=== PATIENT | male | born 1975 | race Hispanic/Latino ===

== ENCOUNTER 2021-08-13 20:11 | Emergency (ER) | payer SELFPAY ==
[2021-08-13] MEDS ORDERED: NA CHLORIDE 0.9% 1,000 ML ONE (20:49)
--- NOTE | 2021-08-13 20:51 | RAD REPORT ---
EXAM DESCRIPTION: CT - CTHCSPWOC - 08/13/2021 8:41 pm CLINICAL HISTORY: Trauma, head and neck injury. fall and AMS COMPARISON: No comparisons TECHNIQUE: Axial 5 mm thick images of the head were obtained. Axial 2 mm thick images of the cervical spine were obtained with sagittal and coronal reconstruction images generated and reviewed. All CT scans are performed using dose optimization technique as appropriate and may include automated exposure control or mA/KV adjustment according to patient size. FINDINGS: CT HEAD WITHOUT CONTRAST: No acute hemorrhage, hydrocephalus or extra-axial collection is identified.No areas of brain edema or midline shift. The paranasal sinuses and mastoids are clear.The calvarium is intact. CT CERVICAL SPINE WITHOUT CONTRAST: No fracture or subluxation.No prevertebral soft tissues swelling is identified. IMPRESSION: No acute intracranial or cervical spine findings.
[2021-08-13 20:56] LABS: Hematocrit 39.6 % (39.6-49.0); Lymphocytes % 19.8 % (15.3-44.8); MPV 9.7 fL (7.6-11.3); RBC Red Blood Cell Count 4.28 M/uL (4.33-5.43)
[2021-08-13 21:09] LABS: Potassium 3.2 mmol/L (3.5-5.1)
[2021-08-13 21:36] LABS: Platelet Estimate DECR; White Blood Cell Scan OK (OK)
[2021-08-13 21:37] LABS: Blood Morphology Comment NOT SEEN (NOT SEEN)
--- NOTE | 2021-08-13 21:47 | ER ---
Nurse's Notes [facility] Name: Bishop Youngblood Age: 45 yrs Sex: Male : 1975 Arrival Date: 08/13/2021 Time: 20:14 Bed 4 Private MD: Diagnosis: Other slipping, tripping and stumbling without falling, sequela;Slipping, tripping and stumbling without falling, unspecified, sequela Presentation: 08/13 20:17 Chief complaint: EMS states: EMS states pt was on a walking trail when someone called tw5 the police stating the patient fell. Pt denies fall, or LOC, dried blood noted around nose, no active bleeding. Coronavirus screen: Vaccine status: Patient reports being unvaccinated. At this time, the client does not indicate any symptoms associated with coronavirus-19. Ebola Screen: No symptoms or risks identified at this time. Initial Sepsis Screen: Does the patient meet any 2 criteria? No. Patient's initial sepsis screen is negative. Does the patient have a suspected source of infection? No. Patient's initial sepsis screen is negative. Risk Assessment: Do you want to hurt yourself or someone else? Patient reports no desire to harm self or others. Onset of symptoms was August 13, 2021. Activity prior to arrival: Exercising on walking trail. 20:17 Method Of Arrival: EMS: [facility] tw5 20:17 Acuity: CHANI 3 tw5 Triage Assessment: 20:21 General: Appears comfortable, Behavior is calm, cooperative. Pain: Denies pain. EENT: tw5 Nares Dried blood noted. Reports States he was running and nose started bleeding. Denies pain. Neuro: Level of Consciousness is awake, alert, obeys commands, Oriented to person, place, time, situation, Gait is steady, Speech is normal, Denies weakness dizziness. Historical: - Allergies: 20:21 No Known Allergies; tw - Home Meds: 20:21 None [Active]; tw5 - PMHx: 20:21 None; tw - PSHx: 20:21 None; tw - Immunization history:: Client reports having NOT received the Covid vaccine. - Social history:: Smoking status: Patient denies any tobacco usage or history of. Screenin:56 Abuse screen: Denies threats or abuse. Nutritional screening: No deficits noted. vc1 Tuberculosis screening: No symptoms or risk factors identified. Fall Risk None identified. Assessment: 20:30 Neuro: Level of Consciousness is awake, alert, obeys commands, Oriented to person, tw5 place, time, situation, Denies weakness dizziness. 20:30 General: Appears comfortable, Behavior is calm, cooperative. Pain: Denies pain. tw5 20:30 Neuro: Denies Pt denies falling or LOC. EENT: Nares bilaterally Dried blood. Reports tw5 nasal discharge that is bloody States nose started bleeding wile exercising . Denies Falling. Derm: Skin is pink, warm \T\ dry. Vital Signs: 20:17 BP 147 / 90; Pulse 124; Resp 16; Temp 98.4(O); Pulse Ox 99% on R/A; Weight 68.04 kg tw5 (R); Height 5 ft. 5 in. (165.10 cm) (R); Pain 0/10; 22:01 BP 116 / 74; Pulse 94; Resp 15; Pulse Ox 98% on R/A; tw5 23:00 BP 149 / 83; Pulse 95; Resp 20; Pulse Ox 100% on R/A; tw5 20:17 Body Mass Index 24.96 (68.04 kg, 165.10 cm) tw5 ED Course: 20:14 Patient arrived in ED. wm 20:14 Homa Adam is Primary Nurse. tw5 20:19 Homero Tucker MD is Attending Physician. kdr 20:21 Triage completed. tw5 20:21 Arm band placed on Patient placed. tw5 20:21 Patient has correct armband on for positive identification. vc1 20:42 CT Head C Spine In Process Unspecified. EDMS 20:45 Inserted saline lock: 20 gauge in right antecubital area, using aseptic technique. oe Blood collected. 20:45 Basic Metabolic Panel Sent. oe 20:45 CBC with Diff Sent. oe 22:56 No provider procedures requiring assistance completed. IV discontinued, intact, vc1 bleeding controlled, No redness/swelling at site. Pressure dressing applied. Administered Medications: 20:47 Drug: NS 0.9% 1000 ml Route: IV; Rate: 1 bolus; Site: right antecubital; tw5 23:02 Follow up: Response: No adverse reaction; IV Status: Completed infusion; IV Intake: tw5 1000ml 23:00 Drug: Potassium Effervescent Tablet 50 mEq Route: PO; tw5 23:08 Follow up: Response: Medication administered at discharge. tw5 Medication: 22:57 VIS not applicable for this client. vc1 Intake: 23:02 IV: 1000ml; Total: 1000ml. tw5 Outcome: 21:47 Discharge ordered by . kdr 22:56 Discharged to home ambulatory. vc1 22:56 Condition: good 22:56 Discharge instructions given to patient, Instructed on discharge instructions, follow up and referral plans. Demonstrated understanding of instructions, follow-up care. 23:08 Patient left the ED. tw5 Signatures: Dispatcher [employer] EDMS Homero Tucker MD MD kdr Espinosa, Orlando oe Marsh, Wendy wm Wood, Tiffany tw5 Anna Gray RN RN vc1 Corrections: (The following items were deleted from the chart) 23:07 23:03 General: Appears comfortable, Behavior is calm, cooperative, tw5 tw5 23:07 23:03 Pain: Denies pain. tw5 tw5 23:07 23:03 Neuro: Level of Consciousness is awake, alert, obeys commands, Oriented to tw5 person, place, time, situation, tw5
--- NOTE | 2021-08-13 21:47 | EDPHYS ---
Physician Documentation [facility] Name: Bishop Youngblood Age: 45 yrs Sex: Male : 1975 Arrival Date: 08/13/2021 Time: 20:14 Bed 4 Private MD: ED Physician Homero Tucker HPI: 08/13 20:39 This 45 yrs old Male presents to ER via EMS with complaints of Fall Injury. kdr 20:40 Is reported that the patient was in a local park. Some persons out in the park became kdr concerned about the individual's behavior. He may have had a fall. Police arrived and trend the patient. At the end of that evaluation EMS was called and the patient was given the choice of either coming to the hospital or going to long term. Patient chose the former. Examination and evaluation, the patient does not admit to any fall or injury. He states only that he has been eating and that sometimes his gums bleed when he eats. He denies any assault injury or fall. He Currently has no focal complaints or concerns. He is non-toxic appealing and responds appropriately to questions. Onset: The symptoms/episode began/occurred just prior to arrival. Severity of symptoms: At their worst the symptoms were mild in the emergency department the symptoms are unchanged. It is unknown whether or not the patient has had similar symptoms in the past. It is unknown whether or not the patient has recently seen a physician. travel specialist line was used to communicate with the patient. Historical: - Allergies: 20:21 No Known Allergies; tw5 - Home Meds: 20:21 None [Active]; tw5 - PMHx: 20:21 None; tw5 - PSHx: 20:21 None; tw5 - Immunization history:: Client reports having NOT received the Covid vaccine. - Social history:: Smoking status: Patient denies any tobacco usage or history of. ROS: 20:40 Constitutional: Negative for fever, chills, and weight loss, Eyes: Negative for injury, kdr pain, redness, and discharge, ENT: Negative for injury, pain, and discharge, Neck: Negative for injury, pain, and swelling, Cardiovascular: Negative for chest pain, palpitations, and edema, Respiratory: Negative for shortness of breath, cough, wheezing, and pleuritic chest pain, Abdomen/GI: Negative for abdominal pain, nausea, vomiting, diarrhea, and constipation, Back: Negative for injury and pain, : Negative for injury, bleeding, discharge, and swelling, MS/Extremity: Negative for injury and deformity, Skin: Negative for injury, rash, and discoloration, Neuro: Negative for headache, weakness, numbness, tingling, and seizure activity. Psych: Negative for depression, anxiety, suicide ideation, homicidal ideation, and hallucinations, Allergy/Immunology: Negative for hives, rash, and allergies, Endocrine: Negative for neck swelling, polydipsia, polyuria, polyphagia, and marked weight changes, Hematologic/Lymphatic: Negative for swollen nodes, abnormal bleeding, and unusual bruising. 20:40 ENT: Positive for nose bleed. Exam: 20:40 Constitutional: This is a well developed, well nourished patient who is awake, alert, kdr and in no acute distress. Head/Face: Normocephalic, atraumatic. There does appear to be some dried blood on his face but no obvious clots in either nostril superficially Eyes: Pupils equal round and reactive to light, extra-ocular motions intact. Lids and lashes normal. Conjunctiva and sclera are non-icteric and not injected. Cornea within normal limits. Periorbital areas with no swelling, redness, or edema. Neck: Trachea midline, no thyromegaly or masses palpated, and no cervical lymphadenopathy. Supple, full range of motion without nuchal rigidity, or vertebral point tenderness. No Meningismus. Chest/axilla: Normal chest wall appearance and motion. Nontender with no deformity. No lesions are appreciated. Cardiovascular: Regular rate and rhythm with a normal S1 and S2. No gallops, murmurs, or rubs. Normal PMI, no JVD. No pulse deficits. Respiratory: Lungs have equal breath sounds bilaterally, clear to auscultation and percussion. No rales, rhonchi or wheezes noted. No increased work of breathing, no retractions or nasal flaring. Abdomen/GI: Soft, non-tender, with normal bowel sounds. No distension or tympany. No guarding or rebound. No evidence of tenderness throughout. Back: No spinal tenderness. No costovertebral tenderness. Full range of motion. Skin: Warm, dry with normal turgor. Normal color with no rashes, no lesions, and no evidence of cellulitis. MS/ Extremity: Pulses equal, no cyanosis. Neurovascular intact. Full, normal range of motion. Neuro: Awake and alert, GCS 15, oriented to person, place, time, and situation. Cranial nerves II-XII grossly intact. Motor strength 5/5 in all extremities. Sensory grossly intact. Cerebellar exam normal. Normal gait. Psych: Awake, alert, with orientation to person, place and time. Behavior, mood, and affect are within normal limits. Vital Signs: 20:17 BP 147 / 90; Pulse 124; Resp 16; Temp 98.4(O); Pulse Ox 99% on R/A; Weight 68.04 kg tw5 (R); Height 5 ft. 5 in. (165.10 cm) (R); Pain 0/10; 22:01 BP 116 / 74; Pulse 94; Resp 15; Pulse Ox 98% on R/A; tw5 23:00 BP 149 / 83; Pulse 95; Resp 20; Pulse Ox 100% on R/A; tw5 20:17 Body Mass Index 24.96 (68.04 kg, 165.10 cm) tw5 MDM: 21:47 Patient medically screened. kdr 22:28 Data reviewed: vital signs, nurses notes, lab test result(s), radiologic studies. kdr Counseling: I had a detailed discussion with the patient and/or guardian regarding: the historical points, exam findings, and any diagnostic results supporting the discharge/admit diagnosis, lab results, radiology results, the need for outpatient follow up. 08/13 20:24 Order name: Basic Metabolic Panel; Complete Time: 21:44 kdr 08/13 20:24 Order name: CBC with Diff; Complete Time: 21:44 kdr 08/13 20:24 Order name: CT Head C Spine; Complete Time: 21:44 kdr 08/13 20:24 Order name: ETOH Level; Complete Time: 21:44 kdr 08/13 21:37 Order name: CBC Smear Scan; Complete Time: 21:44 EDMS 08/13 20:24 Order name: Labs collected and sent; Complete Time: 20:45 kdr Administered Medications: 20:47 Drug: NS 0.9% 1000 ml Route: IV; Rate: 1 bolus; Site: right antecubital; tw5 23:02 Follow up: Response: No adverse reaction; IV Status: Completed infusion; IV Intake: tw5 1000ml 23:00 Drug: Potassium Effervescent Tablet 50 mEq Route: PO; tw5 23:08 Follow up: Response: Medication administered at discharge. tw5 Disposition Summary: 08/13/21 21:47 Discharge Ordered Location: Home kdr Condition: Stable kdr Diagnosis - Other slipping, tripping and stumbling without falling, sequela kdr - Slipping, tripping and stumbling without falling, unspecified, sequela kdr Followup: kdr - With: Private Physician - When: 2 - 3 days - Reason: If symptoms return, Further diagnostic work-up, Recheck today's complaints, Continuance of care, Re-evaluation by your physician Discharge Instructions: - Discharge Summary Sheet kdr - Fall Prevention in the Home, Adult kdr - Nosebleed, Adult, [id number] kdr Forms: - Medication Reconciliation Form kdr - Thank You Letter kdr Signatures: Dispatcher [employer] Homero Salinas MD MD kdr Homa Adam tw5 Anna Gray RN RN vc1
[2021-08-13] MEDS ORDERED: POTASSIUM 25 MEQ EFFERV TAB ONE (22:58)
[2021-08-13 23:15] VITALS: TEMP 98.4
[2021-08-13 23:17] VITALS: BP 149/83; O2SAT 100
== END 2021-08-13 23:08 | disposition home or self-care (01) ==
LOC: ER 20:11
DX: R04.0 Epistaxis (principal); W18.49XA Other slipping, tripping and stumbling without falling, initial encounter
CPT/HCPCS: 36415; 70450; 72125; 80048; 80320; 85025; 96360; 96361; 99284; J7030

== ENCOUNTER 2023-01-29 20:38 | Emergency (ER) | payer SELFPAY ==
[2023-01-29] MEDS ORDERED: NA CHLORIDE 0.9% 1,000 ML ONE (21:24)
[2023-01-29 21:28] LABS: Protime INR 1.36
--- NOTE | 2023-01-29 21:32 | RAD REPORT ---
EXAM DESCRIPTION: CT - Head Brain Wo Cont - 01/29/2023 9:11 pm CLINICAL HISTORY: CONFUSED COMPARISON: No comparisons TECHNIQUE: Noncontrast head CT images were obtained without IV contrast. Multiplanar reformats were generated and reviewed. All CT scans are performed using dose optimization technique as appropriate and may include automated exposure control or mA/KV adjustment according to patient size. FINDINGS: No intracranial hemorrhage, mass, or edema. Midline structures are unremarkable. Normal ventricular caliber for age. Blanton-white matter differentiation is preserved, without evidence of acute infarct. No abnormal extra- axial fluid collections. Mastoid air cells and visualized portions of the paranasal sinuses are clear. No acute bony findings. IMPRESSION: No evidence of an acute intracranial process.
[2023-01-29 21:41] LABS: Absolute Lymphocytes (CBC) 2.4 K/uL (0.7-4.9); Hematocrit 37.3 % (39.6-49.0); Lymphocytes % 44.1 % (15.3-44.8); MCV 96.5 fL (80-100); MPV 9.8 fL (7.6-11.3); Platelets 49 thou/uL (152-406); RBC Red Blood Cell Count 3.87 M/uL (4.33-5.43)
[2023-01-29 21:53] LABS: Blood Morphology Comment NOT SEEN (NOT SEEN); Platelet Estimate DECR; White Blood Cell Scan OK (OK)
[2023-01-29 21:59] LABS: ALT/SGPT 76 U/L (16-61); AST/SGOT 172 U/L (15-37); Alkaline Phosphatase 188 U/L (45-117); Bicarbonate 23 mEq/L (21-32); Bilirubin Direct 1.4 mg/dL (0-0.2); Bilirubin Indirect, Calculated 1.4 mg/dL (0.2-0.8); Bilirubin Total 2.8 mg/dL (0.2-1.0); Glomerular Filtration Rate 130 ml/min (=/>90); Glucose Level 142 mg/dL (74-106); Potassium 3.1 mEq/L (3.5-5.1); Protein, Total 7.5 g/dL (6.4-8.2); Sodium Level 145 mEq/L (136-145)
[2023-01-29 22:05] LABS: BUN Blood Urea Nitrogen < 3 mg/dL (7-18)
--- NOTE | 2023-01-30 08:02 | ER ---
Nurse's Notes [facility] Name: Bishop Youngblood Age: 47 yrs Sex: Male : 1975 Arrival Date: 01/29/2023 Time: 20:38 Bed IW1 Private MD: Diagnosis: Alcohol dependence with intoxication;Altered mental status, unspecified Presentation: 01/29 20:41 Chief complaint: EMS states: Pt's family called for pt being sick for the past several jb4 days. pt and family report alcohol use and cocaine use. PT was given 100mg of thiamine and 300ml on NS VIA 18g to the LAC. Coronavirus screen: At this time, the client does not indicate any symptoms associated with coronavirus-19. Ebola Screen: No symptoms or risks identified at this time. Initial Sepsis Screen: Does the patient meet any 2 criteria? No. Patient's initial sepsis screen is negative. Does the patient have a suspected source of infection? No. Patient's initial sepsis screen is negative. Risk Assessment: Do you want to hurt yourself or someone else? Patient reports no desire to harm self or others. Onset of symptoms was January 29, 2023. Transition of care: patient was not received from another setting of care. 20:41 Method Of Arrival: EMS: [facility] jb4 20:41 Acuity: CHANI 2 jb4 Historical: - Allergies: 20:48 No Known Allergies; jb4 - Home Meds: 20:48 Unable to obtain [Active]; jb4 - PMHx: 20:48 Unable to Obtain; jb4 - PSHx: 20:48 Unable to Obtain; jb4 - Immunization history:: Adult Immunizations up to date. - Social history:: Smoking status: unknown. Screenin/11 06:33 [facility] ED Fall Risk Assessment (Adult) History of falling in the last 3 months, jb4 including since admission No falls in past 3 months (0 pts) Confusion or Disorientation No (0 pts). Abuse screen: Denies threats or abuse. Nutritional screening: No deficits noted. Tuberculosis screening: No symptoms or risk factors identified. Assessment: 01/29 20:50 General: Appears in no apparent distress. uncomfortable, Behavior is cooperative, jb4 agitated, Smells of alcohol. Pain: Denies pain. Neuro: Level of Consciousness is awake, alert, obeys commands, Oriented to person, place, situation. Cardiovascular: Patient's skin is warm and dry. Respiratory: Airway is patent Respiratory effort is even, unlabored, Respiratory pattern is regular, symmetrical. GI: No signs and/or symptoms were reported involving the gastrointestinal system. : No signs and/or symptoms were reported regarding the genitourinary system. EENT: No signs and/or symptoms were reported regarding the EENT system. Derm: Skin is intact, Skin is pink, warm \T\ dry. Musculoskeletal: Circulation, motion, and sensation intact. Range of motion: intact in all extremities. 21:57 Reassessment: Patient appears in no apparent distress at this time. No changes from jb4 previously documented assessment. Patient and/or family updated on plan of care and expected duration. Pain level reassessed. 23:15 Reassessment: Patient appears in no apparent distress at this time. Patient and/or jb4 family updated on plan of care and expected duration. Pain level reassessed. Patient is alert, oriented x 3, equal unlabored respirations, skin warm/dry/pink. 01/30 00:48 Reassessment: Patient appears in no apparent distress at this time. Patient and/or jb4 family updated on plan of care and expected duration. Pain level reassessed. Patient is alert, oriented x 3, equal unlabored respirations, skin warm/dry/pink. Pt now ambulated to restroom with steady gait. attempting to call pt's family. No answer at this time. 02:31 Reassessment: Pt resting in bed. Waiting for call back from family. jb4 05:45 Reassessment: Pt continues to sleep with respirations even and unlabored. Continued to rv try to call for ride home. No answer. 06:27 Reassessment: Pt's brother is on the way to machine operator picker the pt. jb4 07:00 Reassessment: No changes from previously documented assessment. Report received from 1 dry goods clerk RN. Patient already left with ride home. Vital Signs: 01/29 20:41 BP 139 / 90; Pulse 126; Resp 18; Temp 97.7(TE); Pulse Ox 99% on R/A; Weight 65.5 kg (M);jb4 21:50 BP 133 / 88; Pulse 116; Resp 16; Pulse Ox 100% on R/A; jb4 23:15 BP 130 / 84; Pulse 126; Resp 16; Pulse Ox 100% ; jb4 01/30 01:15 Pulse 108; Resp 18; Pulse Ox 100% on R/A; jb4 06:40 BP 152 / 90; Pulse 118; Resp 16; Pulse Ox 100% ; jb4 ED Course: 01/29 20:40 Patient arrived in ED. jb4 20:46 [place] Bansal is Attending Physician. ci 20:48 Triage completed. jb4 20:48 Arm band placed on. EKG completed in triage. Results shown to MD. jb4 20:50 Patient has correct armband on for positive identification. Bed in low position. Call jb4 light in reach. Side rails up X 1. Client placed on continuous cardiac and pulse oximetry monitoring. NIBP monitoring applied. engine monitor on. 20:50 No provider procedures requiring assistance completed. Patient did not have IV access jb4 during this emergency room visit. 21:13 John Grider, RN is Primary Nurse. [facility] 21:13 CT Head Brain wo Cont In Process Unspecified. EDMS 01/30 08:05 Provided Education on: nn/a. ll1 Administered Medications: 01/29 21:25 Drug: NS 0.9% IV 1000 ml IV at 1000 ml once Route: IV; Rate: 1000 ml; Site: left [facility] antecubital; 01/30 08:05 Follow up: Response: No adverse reaction; IV Status: Completed infusion; IV Intake: ll1 1000ml Medication: 08:05 VIS not applicable for this client. ll1 Intake: 08:05 IV: 1000ml; Total: 1000ml. ll1 Outcome: 07:00 Discharged to home ambulatory, with family, [facility] 07:00 Condition: stable 07:00 Discharge instructions given to Pt left prior to receiving instructions. 08:02 Discharge ordered by MD. ci 08:06 Patient left the ED. ll1 Signatures: Dispatcher [employer] EDNV John Grider, Evens Lei RN, RN RN rv Lewis, Lynsay, RN RN ll1 Montana Bansal ci Corrections: (The following items were deleted from the chart) 01/29 21:45 20:41 BP 139 / 90; Pulse 126bpm; Resp 18bpm; Pulse Ox 99% RA; Temp 97.7F Temporal; jb4 jb4 23:49 23:15 Pulse 126bpm; Resp 16bpm; Pulse Ox 100%; jb4 jb4
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
[2023-01-30 08:11] VITALS: TEMP 97.7
[2023-01-30 08:12] VITALS: O2SAT 100
[2023-01-30 08:15] VITALS: BP 152/90
== END 2023-01-30 08:06 | disposition home or self-care (01) ==
LOC: ER 20:38
DX: F10.229 Alcohol dependence with intoxication, unspecified (principal)
CPT/HCPCS: 36415; 70450; 80048; 80076; 80143; 80179; 82077; 82947; 85025; 85610; 85730; 96360; 96361; 99285; J7030